=== PATIENT | male | born 1965 | race Caucasian/White ===

== ENCOUNTER → 2020-07-25 | Outpatient (CLI) | payer BC, OTHER ==
[~2020-07-25] MED LIST: ADVIL100 M1 PO; GLUCOSAMINE &1 EACH PO
== END ==
LOC: LAB 11:25
PROVIDERS: ATTEND Anesthesiology
DX: Z01.812 Encounter for preprocedural laboratory examination (principal); Z20.828 Contact with and (suspected) exposure to other viral communicable diseases